=== PATIENT | male | born 1970 | race Caucasian/White ===

== ENCOUNTER 2016-05-14 13:19 | Emergency (ER) | payer BC ==
[~2016-05-14] VITALS: Ht 182.9 cm; Wt 89.8 kg
[2016-05-14] MEDS ORDERED: NORCO 10/3251 TABLET PO (17:20)
[2016-05-14] MEDS ORDERED: MOTRIN800 MG PO (17:20)
[2016-05-14 17:30] VITALS: BP 158/82
== END 2016-05-14 17:37 | disposition home or self-care (01) ==
LOC: RME 13:19 → EME 13:19 → RME 17:37
PROC: 0RSKXZZ Reposition Left Shoulder Joint, External Approach (ICD-10-PCS; principal; 2016-05-14)
DX: S43.015A Anterior dislocation of left humerus, initial encounter (principal); V00.311A Fall from snowboard, initial encounter; Y93.23 Activity, snow (alpine) (downhill) skiing, snowboarding, sledding, tobogganing and snow tubing
CPT/HCPCS: 73030; 99281; 99284; J1885; J3010; J3360